=== PATIENT | male | born 1980 | race Hispanic/Latino ===

== ENCOUNTER 2023-11-19 00:27 | Emergency (ER) | payer OTHER ==
[2023-11-19] MEDS ORDERED: Ibuprofen 200 MG TAB ONE (02:29)
== END 2023-11-19 03:12 ==
LOC: EEVIPCON 00:27 → ERS 00:27
DX: R07.81 Pleurodynia (principal); F10.129 Alcohol abuse with intoxication, unspecified
CPT/HCPCS: 93005